=== PATIENT | male | born 1970 | race Hispanic/Latino ===

== ENCOUNTER 2017-12-23 18:58 | Emergency (ER) | payer OTHER ==
[2017-12-23] MEDS ORDERED: LIDOCAINE 1% 20 ML MDV ONE (19:32)
[2017-12-23] MEDS ORDERED: MULTIVITAMINS 10 ML VIAL (INJ) IV ONE (20:28)
[2017-12-23] MEDS ORDERED: NA CHLORIDE 0.9% 2,000 ML ONE (20:28)
[2017-12-23] MEDS ORDERED: THIAMINE 200 MG/2 ML INJ ONE (20:28)
[2017-12-23] MEDS ORDERED: FOLIC ACID 5 MG/ML VIAL ONE (20:29)
[2017-12-23 20:51] LABS: Absolute Lymphocytes (CBC) 1.6 K/uL (0.7-4.9); Absolute Monocytes 0.9 K/uL (0.1-1.3); Absolute Neutrophil 15.4 K/uL (1.8-8.0); Basophils % 0.3 % (0-1.3); Eosinophils % 0.2 % (0-4.4); Hematocrit 41.7 % (39.6-49.0); Lymphocytes % 8.8 % (15.3-44.8); MCH 30.2 pg (27.0-35.0); MPV 9.4 fL (7.6-11.3); RBC Red Blood Cell Count 4.74 M/uL (4.33-5.43)
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
[2017-12-23 21:01] LABS: Bicarbonate 20 mEq/L (21-31); Glucose Level 282 mg/dL (65-120); Potassium 3.5 mEq/L (3.6-5.0); Sodium Level 135 mEq/L (135-145)
[2017-12-23 21:02] LABS: BUN Blood Urea Nitrogen 6 mg/dL (6-20); Glomerular Filtration Rate > 90 mL/min (=/>90)
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
[2017-12-23] MEDS ORDERED: TETANUS & DIPHTHERIA TOX,ADULT 0.5 ML VIAL ONE (21:25)
[2017-12-23] MEDS ORDERED: CLINDAMYCIN 600MG/D5W 600 MG/50 ML BAG IV ONE (21:36)
[2017-12-23 21:48] LABS: Blood Morphology Comment NOT SEEN (NOT SEEN); Platelet Estimate ADEQ
== END 2017-12-23 22:05 | disposition short-term general hospital (02) ==
LOC: ER 18:58
PROC: 0JQ10ZZ Repair Face Subcutaneous Tissue and Fascia, Open Approach (ICD-10-PCS; principal; 2017-12-23)
DX: S06.6X0A Traumatic subarachnoid hemorrhage without loss of consciousness, initial encounter (principal); S02.32XA Fracture of orbital floor, left side, initial encounter for closed fracture; S01.81XA Laceration without foreign body of other part of head, initial encounter; F10.129 Alcohol abuse with intoxication, unspecified; Y04.0XXA Assault by unarmed brawl or fight, initial encounter; Y93.89 Activity, other specified; Y92.89 Other specified places as the place of occurrence of the external cause; Z23 Encounter for immunization; E11.9 Type 2 diabetes mellitus without complications; F17.210 Nicotine dependence, cigarettes, uncomplicated
CPT/HCPCS: 36415; 70450; 70486; 72125; 76377; 80048; 85025; 90714; 96365; 99285; J3411; J7030